=== PATIENT | female | born 1950 | race Caucasian/White ===

== ENCOUNTER 2018-04-04 12:39 | Outpatient (CLI) | payer MEDICARE ==
--- NOTE | 2018-04-04 13:56 | RAD ---
LUMBAR SPINE TWO VIEWS: History: Compression fracture. Comparison: None. FINDINGS: Mild loss of vertebral body height at L3 with sclerosis involving the superior aspect of L3. No signi ficant retropulsion. Remaining lumbar spine vertebral body height is maintained. IMPRESSION: Mild compression fracture at L3. POS: [facility]
--- NOTE | 2018-04-04 14:07 | RAD ---
THREE VIEWS CERVICAL SPINE: HISTORY: Spinal stenosis. Neck pain. Muscle spasm. COMPARISON: None. FINDINGS: A lateral view of the cervical spine is performed in the neutral position, along with extension and f lexion. The predental space is normal. There is no prevertebral soft tissue swelling. Straightenin g of normal cervical lordosis. There is moderate degenerative change at C3-C4, C4-C5, C5-C6, and C6- C7. Loss of disk space height and osteophyte formation is noted. There is limited of the evaluation of the cardiothoracic junction. In the neutral position, no significant spondylolisthesis. No sign ificant spondylolisthesis upon extension or flexion. IMPRESSION: Extensive degenerative change of the cervical spine with loss of disk space height and osteophyte for mation. The patient is scheduled for an MRI today. Please refer to that examination for better inte rrogation of the contents of the central spinal canal and neural foramina. POS: [facility]
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
== END 2018-04-04 12:40 | disposition home or self-care (01) ==
LOC: TBSIIMAG 12:39
PROVIDERS: ATTEND Neurological Surgery
DX: S32.039A Unspecified fracture of third lumbar vertebra, initial encounter for closed fracture (principal); M48.02 Spinal stenosis, cervical region; M53.2X2 Spinal instabilities, cervical region; M47.892 Other spondylosis, cervical region; S12.600A Unspecified displaced fracture of seventh cervical vertebra, initial encounter for closed fracture; R60.0 Localized edema
CPT/HCPCS: 72040; 72100; 72141

== ENCOUNTER 2018-06-14 14:55 | Outpatient (CLI) | payer MEDICARE ==
--- NOTE | 2018-06-14 15:44 | RAD ---
LUMBAR SPINE TWO VIEWS: HISTORY: Fracture. Followup. COMPARISON: 04/04/2018 FINDINGS: Compression fracture at the L3 superior endplate with very mild loss of height is similar in appearan ce to the previous study. Minimal degenerative spondylolisthesis at the L3-L4 levels is stable. Ost eophytosis and other degenerative changes. Calcification over the arterial structures. IMPRESSION: 1. L3 superior endplate compression and degenerative changes appear stable. 2. Atherosclerosis. POS: [facility]
--- NOTE | 2018-06-14 15:47 | RAD ---
CERVICAL SPINE FOUR VIEWS: HISTORY: Neck pain. FINDINGS: There is loss of the normal lordotic curvature. Disk space narrowing at the C4-C5 and C5-C6 levels. Minimal degenerative retrolisthesis at the C4-C5 level. Prominent osteophytosis throughout the vert ebral bodies and facets. The cervicothoracic junction is intact. No acute fracture, dislocation, or aggressive osseous erosions. IMPRESSION: Prominent cervical spondylosis. POS: [facility]
== END 2018-06-14 14:56 | disposition home or self-care (01) ==
LOC: TBSIIMAG 14:55
PROVIDERS: ATTEND Neurological Surgery
DX: M54.5 Low back pain (principal); M54.2 Cervicalgia; M47.892 Other spondylosis, cervical region; M47.896 Other spondylosis, lumbar region; I70.90 Unspecified atherosclerosis
CPT/HCPCS: 72040; 72100